=== PATIENT | female | born 1925 | race Two or more races ===

== ENCOUNTER 2016-12-03 10:41 | Emergency (ER) | payer MEDICARE ==
[~2016-12-03] VITALS: Ht 152.4 cm; Wt 65.1 kg
[~2016-12-03 10:41] MED LIST: INSU100V8 SQ; LEVO88TA4 PO; ONDA4TAB10 PO; PANT40TA5 PO
[2016-12-03 11:48] LABS: HEMATOCRIT 41.6 % (34.6-47.8); HEMOGLOBIN 13.8 g/dL (11.7-16.4); WHITE BLOOD COUNT 8.7 x10^3/uL (3.4-10)
[2016-12-03 11:56] LABS: ASPARTATE AMINO TRANSFERASE 11 U/L (15-37); BLOOD UREA NITROGEN 11 mg/dL (7-18)
[2016-12-03 13:13] VITALS: BP 153/76
== END 2016-12-03 13:36 | disposition home or self-care (01) ==
LOC: ED 13:30
DX: K59.00 Constipation, unspecified (principal); I10 Essential (primary) hypertension; E11.9 Type 2 diabetes mellitus without complications
CPT/HCPCS: 36415; 74020; 76700; 80053; 81001; 83690; 85025; 87086; 99285